=== PATIENT | male | born 1960 | race Caucasian/White ===

== ENCOUNTER 2016-08-18 09:48 | Day surgery (SDC) | payer BC ==
--- NOTE | ~2016-08-18 | EGD ---
EGD REPORT [facility] [address] [place] [address] NAME: ROBERT FRANCES : [birth year] STATUS : REG [facility]#: [id number] AGE: 55 ADM/REG DATE : 08/18/16 MR#: [id number] REPORT SERV DATE: 08/18/16 DICTATED BY: CHRIS SALDAÑA DATE: 08/18/16 REPORT STATUS : Draft [facility]ANS[facility]IB[facility]: [facility] DATE: 08/18/16 [facility] Patient Name: Robert Frances Date of : 1960 Attending MD: CHRIS SALDAÑA MD Procedure Date No Time: 08/18/2016 Procedure: Colonoscopy Indications: Screening for colorectal malignant neoplasm, This is the patient's first colonoscopy Referring MD: Carolyn CABRERA MD Medicines: See the Anesthesia note for documentation of the administered medications Complications: No immediate complications. Procedure: Pre-Anesthesia Assessment: - ASA Grade Assessment: III - A patient with severe systemic disease. After I obtained informed consent, the scope was passed under direct vision. Throughout the procedure, the patient's blood pressure, pulse, and oxygen saturations were monitored continuously. The CF [id number] was introduced through the anus and advanced to the cecum, identified by appendiceal orifice and ileocecal valve. The colonoscopy was performed without difficulty. The patient tolerated the procedure well. The quality of the bowel preparation was adequate. Findings: The perianal and digital rectal examinations were normal. Internal hemorrhoids were found during retroflexion and were small. A sessile polyp was found in the transverse colon. The polyp was small in size. The polyp was removed with a cold biopsy forceps. Resection and retrieval were complete. A flat polyp was found in the cecum. The polyp was 10 mm in size. The polyp was removed with a hot snare. Resection and retrieval were complete. A sessile polyp was found in the ascending colon. The polyp was small in size. The polyp was removed with a cold biopsy forceps. Resection and retrieval were complete. Impression: - Internal hemorrhoids. - One small polyp in the transverse colon. Resected and retrieved. - One 10 mm polyp in the cecum. Resected and retrieved. - One small polyp in the ascending colon. Resected and retrieved. EGD REPORT [address] [address] NAME: ROBERT FRANCES : [birth year] STATUS [place] [facility] [place] [id number] AGE: 55 ADM/REG DATE : 08/18/16 MR#: [id number] REPORT SERV DATE: 08/18/16 DICTATED BY: CHRIS SALDAÑA DATE: 08/18/16 REPORT STATUS : Draft TRANSCRIBED BY: [employer] DATE: 08/18/16 Recommendation: - Patient has a contact number available for emergencies. The signs and symptoms of potential delayed complications were discussed with the patient. Return to normal activities tomorrow. Written discharge instructions were provided to the patient. - Regular diet. - Continue present medications. - Repeat colonoscopy for surveillance based on pathology results. - FOR YOUR BIOPSY RESULTS: Please go to [email or web address] and register to receive your results via the portal. Your biopsy results will be posted there in about 7 to 10 days. IF you do not see result in 10 days, call office. Procedure Code(s): --- Professional --- 89711, Colonoscopy, flexible, proximal to splenic flexure; with removal of tumor(s), polyp(s), or other lesion(s) by snare technique 77233, 59, Colonoscopy, flexible, proximal to splenic flexure; with biopsy, single or multiple Diagnosis Code(s): --- Professional --- K64.8, Other hemorrhoids D12.2, Benign neoplasm of ascending colon D12.0, Benign neoplasm of cecum D12.3, Benign neoplasm of transverse colon Z12.11, Encounter for screening for malignant neoplasm of colon CPT copyright 2013 [employer]. All rights reserved. The codes documented in this report are preliminary and upon legger press operator review may be revised to meet current compliance requirements. Chris Saldaña MD CHRIS SALDAÑA MD 08/18/2016 12:03 PM This report has been signed electronically. Number of Addenda: 0 Note Initiated On: 08/18/2016 11:39 AM Scope Withdrawal Time 0 hours 11 minutes 44 seconds
[~2016-08-18 09:48] MED LIST: ALLEGRA180 PO; ASAB PO; CO Q-10100 MG PO; COZ25 PO; ENDOCET1 TA3 PO; FISH-EPA1000 MG PO; FLEX PO; MOBIC7.5 PO; MULTIPLE VIT PO; NASONEX NAS; OXYCON20 PO; VOLTAREN1 % TOP
== END 2016-08-18 23:59 | disposition home or self-care (01) ==
LOC: DMU 09:48
PROVIDERS: Internal Medicine Gastroenterology
PROC: 0DBH8ZZ Excision of Cecum, Via Natural or Artificial Opening Endoscopic (ICD-10-PCS; 2016-08-18)
PROC: 0DBL8ZZ Excision of Transverse Colon, Via Natural or Artificial Opening Endoscopic (ICD-10-PCS; principal; 2016-08-18 11:30)
PROC: 0DBK8ZZ Excision of Ascending Colon, Via Natural or Artificial Opening Endoscopic (ICD-10-PCS; 2016-08-18 11:30)
DX: D12.3 Benign neoplasm of transverse colon (principal); D12.2 Benign neoplasm of ascending colon; K63.5 Polyp of colon; Z12.11 Encounter for screening for malignant neoplasm of colon; I10 Essential (primary) hypertension; G89.29 Other chronic pain; M54.9 Dorsalgia, unspecified; E66.9 Obesity, unspecified; Z88.8 Allergy status to other drugs, medicaments and biological substances; G58.8 Other specified mononeuropathies; M79.89 Other specified soft tissue disorders; I83.93 Asymptomatic varicose veins of bilateral lower extremities; M75.101 Unspecified rotator cuff tear or rupture of right shoulder, not specified as traumatic; Z79.899 Other long term (current) drug therapy; Z79.891 Long term (current) use of opiate analgesic
CPT/HCPCS: 88305